=== PATIENT | male | born 1970 | race Caucasian/White ===

== ENCOUNTER 2019-05-24 16:48 | Emergency (ER) | payer MEDICAID ==
[~2019-05-24] VITALS: Ht 177.8 cm; Wt 69.5 kg
[2019-05-24 17:09] VITALS: Ht 177.8 cm; Wt 69.5 kg
[2019-05-24 19:01] VITALS: BP 100/70
== END 2019-05-24 19:01 | disposition home or self-care (01) ==
LOC: ED 16:48
DX: B02.9 Zoster without complications (principal)

== ENCOUNTER 2019-10-30 12:50 | Emergency (ER) | payer SELFPAY ==
[~2019-10-30] VITALS: Ht 177.8 cm; Wt 68.0 kg
[2019-10-30 12:53] VITALS: Ht 177.8 cm; Wt 68.0 kg
[2019-10-30 14:24] LABS: BASOPHIL % 0.4 % (0-2); PLATELET COUNT 242 x10^3mcL (130-400)
[2019-10-30 14:25] LABS: RED CELL DISTRIBUTION WIDTH 14.6 % (11.5-14.5)
[2019-10-30 14:36] LABS: CALCIUM 9.2 mg/dL (8.5-10.1); CARBON DIOXIDE 28.4 mmol/L (21-32); CHLORIDE SERUM 103 mmol/L (98-107); CREATININE SERUM 1.1 mg/dL (0.7-1.3); GFR1 > 60 mL/min; GLUCOSE SERUM 99 mg/dL (74-106); POTASSIUM SERUM 4.8 mmol/L (3.5-5.1); SODIUM SERUM 139 mmol/L (136-145)
[2019-10-30 14:40] LABS: ALBUMIN 4.2 g/dL (3.4-5.0); ALKALINE PHOSPHATASE 106 U/L (46-116); ALT/SGPT 29 U/L (16-63); AST/SGOT 17 U/L (15-37); BILIRUBIN TOTAL 0.4 mg/dL (0.20-1.00); LIPASE 52 IU/L (73-393); TOTAL PROTEIN, SERUM 7.7 g/dL (6.4-8.2)
[2019-10-30 16:37] VITALS: BP 114/69
== END 2019-10-30 16:37 | disposition home or self-care (01) ==
LOC: ED 12:50
PROVIDERS: Emergency Medicine
DX: N23 Unspecified renal colic (principal); R11.2 Nausea with vomiting, unspecified
CPT/HCPCS: J1885; J2270; J2405; J7030